=== PATIENT | female | born 1980 ===

== ENCOUNTER 2018-03-06 23:16 | Emergency (ER) | payer SELFPAY ==
[2018-03-06] MEDS ORDERED: Sodium Chloride 0.9% 1,000 ML IV STA (23:38)
[2018-03-07 00:29] LABS: BASO % 0.3 % (0.0-2.0); EOS # 0.3 K/uL (0.0-0.7); EOS % 2.3 % (0.0-4.0); HEMOGLOBIN 11.9 g/dL (12.0-16.0); LYMPH % 16.2 % (20.0-40.0); MEAN CELL VOLUME 91.8 fl (81.0-99.0); MEAN CORPUSCULAR HEMOGLOBIN 31.1 pg (27.0-31.0); MEAN CORPUSCULAR HGB CONC 33.9 g/dL (33.0-37.0); MEAN PLATELET VOLUME 10.1 fl (7.2-11.7); MONO # 0.5 K/uL (0.0-0.8); NEUT # 9.4 K/uL (1.8-7.0); NEUT % 77.2 % (50.0-75.0); NRBC % 0.1 % (0.0-0.0); RBC 3.83 Mil/uL (3.80-5.20); RED CELL DISTRIBUTION WIDTH 12.4 % (11.5-14.5); WHITE BLOOD COUNT 12.2 K/uL (4.8-10.8)
[2018-03-07 00:37] LABS: ALB/GLOB RATIO 1.3 (1.0-2.1); ALBUMIN 4.4 g/dL (3.5-5.0); ALT/SGPT 94 U/L (9-52); AST/SGOT 54 U/L (14-36); BLOOD UREA NITROGEN 13 mg/dl (7-17); CALCIUM 9.3 mg/dL (8.4-10.2); GFR NON-AFRICAN AMERICAN > 60
[2018-03-07] MEDS ORDERED: Morphine 4 MG/ML VIAL ONE ×2 (01:11→03:50)
[2018-03-07] MEDS ORDERED: Morphine 4 MG/ML VIAL IVP STA ×2 (01:22→03:45)
--- NOTE | 2018-03-07 02:11 | ED PDOC ---
HPI: Female Pain Time Seen by Provider: 03/06/18 23:33 Chief Complaint (Nursing): Female Genitourinary History Per: Patient History/Exam Limitations: no limitations Onset/Duration Of Symptoms: Hrs Current Symptoms Are (Timing): Still Present Additional Complaint(s): No PMHx presenting with RLQ pain x 1 day, states that she had intra-vaginal pain since this morning that progressed to right lower quadrant pain associated with 3 episodes of nonbloody nonbilious vomiting. Denies urinary symptoms, states that she had some loose stools today. Past Medical History Reviewed: Historical Data, Nursing Documentation, Vital Signs Vital Signs: Last Vital Signs Temp 98.4 F 03/06/18 23:26 Pulse 71 03/06/18 23:26 Resp 18 03/06/18 23:26 BP 93/59 L 03/06/18 23:26 Pulse Ox 99 03/06/18 23:26 - Medical History PMH: No Chronic Diseases - Family History Family History: States: Unknown Family Hx - Home Medications Home Medications: Ambulatory Orders Medication Instructions Recorded Hydrocodone/Acetaminophen [Vicodin 1 each PO Q8 #15 tablet 03/07/18 Es 7.5-300 mg Tablet] Ibuprofen [Motrin Tab] 600 mg PO Q6 #30 tab 03/07/18 Tamsulosin [Flomax] 0.4 mg PO BID #12 cap 03/07/18 - Allergies Allergies/Adverse Reactions: Allergies Allergy/AdvReac Type Severity Reaction Status Date / Time No Known Allergies Allergy Verified 03/06/18 23:26 Review of Systems ROS Statement: Except As Marked, All Systems Reviewed And Found Negative Gastrointestinal: Positive for: Nausea, Vomiting, Abdominal Pain Physical Exam - Reviewed Nursing Documentation Reviewed: Yes Vital Signs Reviewed: Yes - Physical Exam Appears: Positive for: Well, Non-toxic, No Acute Distress Head Exam: Positive for: ATRAUMATIC, NORMAL INSPECTION, NORMOCEPHALIC Skin: Positive for: Normal Color, Warm, DRY Eye Exam: Positive for: EOMI, Normal appearance, PERRL ENT: Positive for: Normal ENT Inspection Neck: Positive for: Normal, Painless ROM Cardiovascular/Chest: Positive for: Regular Rate, Rhythm Respiratory: Positive for: CNT, Normal Breath Sounds Gastrointestinal/Abdominal: Positive for: Normal Exam, Soft, Tenderness (RLQ tenderness) Pelvic Exam: Positive for: External Exam Normal, Tender Adnexa (R sided), Other (Stringer Machine Tender- EDT Althea ). Negative for: Blood, Cervicitis, Discharge, Lesions, Tender W/Cervical Motion Back: Positive for: Normal Inspection Extremity: Positive for: Normal ROM Neurologic/Psych: Positive for: Alert, Oriented - Laboratory Results Result Diagrams: 03/07/18 00:20 03/07/18 00:20 - ECG O2 Sat by Pulse Oximetry: 99 Pulse Ox Interpretation: Normal Medical Decision Making Medical Decision Making: Patient presenting with RLQ/pelvic pain --concerned for ovarian cyst with/without rupture, torsion, TOA, appendicitis, mesenteric adenitis vs. others not listed --patient with stable vitals, uncomfortable appearing but otherwise well appearing --pending u/s, ct, labs 0115 Transvaginal US Findings: The uterus measures 7.2 x3.6x4.9 cm. Endometrium is normal in thickness measuring 8.3 mm. Anteverted uterus. No free fluid in the pelvic cul-de-sac. Normal right ovarian follicles. Right ovary is normal in size measuring 1.8x3x2 cm. Normal left ovarian follicles. Left ovary is normal in size measuring 2.5x2.1x2.3 cm. Impression: Normal uterus and ovaries. Normal bilateral ovarian flow. 0351 CT Abdomen/Pelvis Findings: COMMENTS: 3.5 mm obstructing stone at the right ureterovesical junction. Mild right hydroureteronephrosis. Heterogeneous/delayed nephrogram of the right kidney. The liver is of uniform attenuation without mass or defect. There is no intra or extrahepatic biliary ductal dilatation. The spleen is normal. The gallbladder is within normal limits. The pancreas is of normal contour and attenuation characteristics. There is no evidence of adrenal mass. There is no evidence of renal or ureteral mass. No renal or left ureteral calculi are identified. There is no left hydroureter or hydronephrosis. No evidence for appendicitis. There is no bowel wall thickening. No evidence for small or large bowel obstruction. There is no evidence of abdominal ascites or lymphadenopathy. There is no evidence of intrinsic or extrinsic bladder mass. There is no pelvic ascites or lymphadenopathy. Images of the lung bases show no evidence of pleural or parenchymal mass. There are no pleural effusions. The bony structures are free of lytic or blastic lesions. IMPRESSION: Obstructing stone at the right ureterovesical junction. Thank you for your kind referral of this patient. 430 Patient was able to urinate freely Patient is feeling much better, very well appearing Discussed narcotic safety with patient, verbalized understanding of taking opioids safely Will refer to Dr. Aguilera Disposition - Clinical Impression Clinical Impression: Kidney stone - Disposition Referrals: Joey Aguilera MD [Medical Doctor] - Disposition: Routine/Home Disposition Time: 04:43 Condition: STABLE Prescriptions: Hydrocodone/Acetaminophen [Vicodin Es 7.5-300 mg Tablet] 1 each PO Q8 #15 tablet Ibuprofen [Motrin Tab] 600 mg PO Q6 #30 tab Tamsulosin [Flomax] 0.4 mg PO BID #12 cap Instructions: Kidney Stones in Adults, Opioids for Short-Term Treatment of Pain , Taking Narcotics Safely Forms: [facility] (Belizean) Print Language: KINYARWANDA
[2018-03-07] MEDS ORDERED: Sodium Chloride 0.9% 50 ML IV ONE (02:28)
[2018-03-07] MEDS ORDERED: Iohexol 300 100 ML IJ ONE (02:28)
[2018-03-07 04:13] LABS: URINE BILIRUBIN NEGATIVE (NEGATIVE); URINE BLOOD SMALL (NEGATIVE); URINE CLARITY SLIGHTY-CLOUDY (Clear); URINE COLOR YELLOW (YELLOW); URINE GLUCOSE (UA) 50 mg/dL (Normal); URINE LEUKOCYTE ESTERASE NEG Leu/uL (Negative); URINE PROTEIN NEGATIVE (NEGATIVE); URINE UROBILINOGEN 0.2-1.0 mg/dL (0.2-1.0)
[2018-03-07 04:38] LABS: SQUAMOUS EPITHIAL 3 /hpf (0-5); URINE BACTERIA FEW (<OCC)
[2018-03-07 05:11] VITALS: BP 100/63; PULSE 67; RESP 18; TEMP 98; O2SAT 100
--- NOTE | 2018-03-07 17:07 | US ---
Date of service: 03/07/2018 HISTORY: R sided pelvic pain, r/o ovarian torsion COMPARISON: None available. TECHNIQUE: Transvaginal sonographic evaluation of the pelvis performed. FINDINGS: UTERUS: Measures 7.2 x 3.6 x 4.9 cm. Normal in size and appearance. No fibroid or other mass lesion seen. ENDOMETRIUM: Measurement ranges between 67.3 and 8.3 mm. In diameter. Unremarkable. CERVIX: No cervical abnormality identified. RIGHT OVARY: Measures 3.0 x 2.0 x 1.8 cm. No solid mass. Normal flow. Multiple follicular cysts. LEFT OVARY: Measures 2.5 x 2.1 x 2.3 cm. No solid mass. Normal flow. Multiple follicular cysts. FREE FLUID: No significant free fluid noted. OTHER FINDINGS: None. IMPRESSION: Unremarkable pelvic ultrasound.
--- NOTE | 2018-03-07 17:13 | CT ---
Date of service: 03/07/2018 PROCEDURE: CT Abdomen and Pelvis with Oral contrast. HISTORY: RLQ pain COMPARISON: No prior study available for comparison. TECHNIQUE: Contiguous axial images of the abdomen and pelvis performed following intravenous injection of approximately 90 cc Omnipaque 300 contrast material. Additional 2D sagittal and coronal reformats generated. Radiation dose: Total exam DLP = 254.86 mGy-cm. This CT exam was performed using one or more of the following dose reduction techniques: Automated exposure control, adjustment of the mA and/or kV according to patient size, and/or use of iterative reconstruction technique. FINDINGS: LOWER THORAX: Unremarkable. LIVER: Liver is borderline of normal. Upper limits of normal in size. Mild fatty hepatic infiltration. No obvious hepatic mass collection or calcification. Portal and splenic veins are opacified. GALLBLADDER AND BILE DUCTS: Gallbladder is physiologically distended. No evidence of intraluminal gallbladder calculi. PANCREAS: Unremarkable. No mass. No ductal dilatation. SPLEEN: Unremarkable. No splenomegaly. ADRENALS: No adrenal lesions. KIDNEYS AND URETERS: Kidneys demonstrate symmetric nephrograms.. There is mild right-sided hydronephrosis with a small approximately 2.9 mm calculus either within the posterior right parasagittal margin of the urinary bladder consistent with recently passed calculus or within the intramural portion of the right UVJ. No evidence of left-sided nephrolithiasis or hydronephrosis.. BLADDER: Urinary bladder is appears incompletely distended which presumably in part accounts for thick-walled appearance. Correlation with urinalysis recommended to exclude cystitis.. No evidence of intraluminal urinary bladder calculi. REPRODUCTIVE: Unremarkable as visualized. APPENDIX: Normal appendix. BOWEL: Evaluation of the bowel is somewhat limited due to the lack of oral contrast material. Stomach is partially distended with food debris liquid and air. Visualized loops of small bowel exhibit normal contour and caliber. No evidence of acute mechanical small bowel obstruction. There is a moderate amount of stool seen within the cecum at ascending and transverse colon with less amount in the remaining colon. Findings suggest very mild cyst fecal retention. No definitive mural wall thickening. PERITONEUM: Unremarkable. No fluid collection. No free air. There is a small fat containing umbilical hernia. LYMPH NODES: Unremarkable. No enlarged lymph nodes. VASCULATURE: Unremarkable. No aortic aneurysm. No aortic atherosclerotic calcification or mural plaque present. BONES: No fracture or destructive lesion. OTHER FINDINGS: None. IMPRESSION: There is mild right-sided hydronephrosis with a small approximately 2.9 mm calculus either within the posterior right parasagittal margin of the urinary bladder consistent with recently passed calculus or within the intramural portion of the right UVJ.
== END 2018-03-07 05:00 | disposition home or self-care (01) ==
LOC: H.ER 23:16
DX: N20.0 Calculus of kidney (principal)
CPT/HCPCS: 74177; 76830; 80053; 81003; 81025; 85025; 87086; 87181; 87491; 87591; 96361; 96374; 96375; 96376; 99284; J1885; J2270; J7030; Q9967